=== PATIENT | female | born 1955 | race Caucasian/White ===

== ENCOUNTER → 2024-10-29 07:12 | Outpatient (REF) | payer MEDICARE, OTHER, SELFPAY ==
[2024-10-29] VITALS (7 sets, daily range): BP systolic 73–142; BP diastolic 59–81
[2024-10-29 08:01] LABS: INR 0.97; PT 13.2 Sec (11.4-14.6)
== END ==
LOC: RADI 07:12
PROVIDERS: ATTENDING PHYSICIAN Internal Medicine Hematology & Oncology; FAMILY PHYSICIAN Family Medicine
DX: C54.1 Malignant neoplasm of endometrium (principal); D68.8 Other specified coagulation defects
CPT/HCPCS: 88305; 20206; 36415; 77012; 85610; 88333; 88341; 88342; 88360; 99152; 99153

== ENCOUNTER → 2024-11-12 08:32 | Outpatient (REF) | payer MEDICARE, OTHER, SELFPAY ==
[2024-11-12 08:58] VITALS: BP 143/70; BP_SYST 79; BMI 33.3
[2024-11-12] MEDS: ANCEF 10 IV (09:26)
[2024-11-12 10:30] VITALS: BP 139/73; BP_SYST 84
== END ==
LOC: RADI 08:32
PROVIDERS: ATTENDING PHYSICIAN Physician Assistant Surgical; FAMILY PHYSICIAN Family Medicine
DX: C54.1 Malignant neoplasm of endometrium (principal)
CPT/HCPCS: 36561; 76937; 77001; 99152; 99153; C1788